=== PATIENT | female | born 1950 | race Caucasian/White ===

== ENCOUNTER 2017-04-10 11:22 | Inpatient (IN) | payer MEDICARE, BC ==
[2017-04-10] MEDS ORDERED: HYDROmorphone 0.5 MG/0.5 ML Syringe IVPUSH PRN (12:55)
[2017-04-10] MEDS ORDERED: Bisacodyl 5 MG Tab PO PRN (12:55)
[2017-04-10] MEDS ORDERED: Albuterol/Ipratropium 3.0-0.5 MG/3 ML Neb Soln NEB PRN (12:55)
[2017-04-10] MEDS ORDERED: Polyethylene Glycol 3350 Powder 17 GM Packet PO PRN (12:55)
[2017-04-10] MEDS ORDERED: Promethazine 12.5 MG in Sodium Chloride 0.9% 50 ML IV PRN (12:55)
[2017-04-10] MEDS ORDERED: Ondansetron 4 MG/2 ML SDV IV PRN (12:55)
[2017-04-10] MEDS ORDERED: Acetaminophen/oxyCODONE 325-5 MG Tab PO PRN (12:55)
[2017-04-10] MEDS ORDERED: Docusate Sodium 100 MG Cap PO PRN (12:55)
[2017-04-10] MEDS ORDERED: Acetaminophen 325 MG Tab PO PRN (12:55)
[2017-04-10] MEDS ORDERED: LORazepam 2 MG/ML MDV IV PRN (12:55)
[2017-04-10] MEDS ORDERED: Temazepam 15 MG Cap PO PRN (12:55)
--- NOTE | 2017-04-10 12:55 | PCM.HP ---
H&P History of Present Illness - General Date of Service: 04/10/17 Admit Problem/Dx: Acute Diverticulitis Source of Information: Patient, Old Records, Provider History Limitations: Reports: No Limitations - History of Present Illness Initial Comments - Free Text/Narative: This is a 66 yo elderly white female with past medical hx/o HTN, HLD, BREE on CPAP, Chronic Constipation, GERD, Urinary Incontinence, Hypothyroidism, Insomnia , AR, OA, Depression and Morbid Obesity who comes via direct admit from her PCP' s office. She was recently diagnosed with colic diverticulitis on medical treatment but currently failing outpatient treatment. She denies any nausea or vomiting. She is able to pas gas. Her last bowel movement was loose yesterday. Her intake is marginal. She complaints of abdominal pain 7/10 localized to her left lower abdomen. Patient has no labs done today. She will be admitted for acute colonic diverticulosis. She is full code. - Related Data Allergies/Adverse Reactions: Allergies Allergy/AdvReac Type Severity Reaction Status Date / Time ibuprofen [From Advil] Allergy Unknown Cannot Verified 04/10/17 12:16 Remember Penicillins Allergy Unknown Cannot Verified 04/10/17 12:16 Remember Home Medications: Home Meds Multivitamins/Iron/Folic Acid [Cerovite Advanced Formula] 1 tab PO DAILY [History] RX: Hydrochlorothiazide 12.5 mg PO DAILY 09/06/14 [History] RX: Simvastatin [Zocor] 10 mg PO DAILY 09/06/14 [History] RX: Aspirin [Halfprin] 81 mg PO DAILY 04/10/17 [History] RX: Calcium Carbonate/Vitamin D3 [Calcium 600 + Vit D Softgel] 1 tab PO DAILY [History] RX: Sertraline [Zoloft] 50 mg PO DAILY 04/10/17 [History] RX: Tamsulosin [Flomax] 0.4 mg PO DAILY 04/10/17 [History] RX: diphenhydrAMINE [Benadryl] 50 mg PO BEDTIME 04/10/17 [History] Temazepam [Restoril] 15 mg PO BEDTIME 04/10/17 [History] Social & Family History - Tobacco Use Smoking Status *Q: Never Smoker - Recreational Drug Use Recreational Drug Use: No H&P Review of Systems - Review of Systems: Review Of Systems: See Below General: Reports: Decreased Appetite. Denies: Fever, Chills, Malaise, Weakness , Fatigue HEENT: Reports: No Symptoms Pulmonary: Denies: Shortness of Breath Cardiovascular: Denies: Chest Pain, Edema, Lightheadedness Gastrointestinal: Reports: Abdominal Pain, Decreased Appetite, Flatus. Denies: Anorexia, Constipation, Diarrhea, Difficulty Swallowing, Hematochezia, Melena, Nausea, Vomiting Genitourinary: Reports: No Symptoms Musculoskeletal: Reports: Joint Pain Skin: Denies: Cyanosis, Rash, Erythema Psychiatric: Denies: Depression, Cravings, Hallucinations Neurological: Reports: Gait Disturbance. Denies: Confusion, Difficulty Walking , Weakness Hematologic/Lymphatic: Reports: No Symptoms Immunologic: Reports: No Symptoms Exam - Exam Exam: See Below - Vital Signs Vital Signs: Last Vital Signs Temp 36.8 C 04/10/17 11:44 Pulse 79 04/10/17 11:44 Resp 14 04/10/17 11:44 BP 147/88 H 04/10/17 11:44 Pulse Ox 97 04/10/17 11:44 Weight: 133.991 kg - Exam General: Alert, Oriented, Cooperative, Mild Distress, Other (Morbidly Obese) HEENT: Conjunctiva Clear, EACs Clear, EOMI, Hearing Intact, Mucosa Moist & Santiago , Nares Patent, Posterior Pharynx Clear, Pupils Equal Neck: Supple, Trachea Midline, +2 Carotid Pulse wo Bruit, Full Range of Motion. No: JVD Lungs: Clear to Auscultation, Normal Respiratory Effort, Decreased Breath Sounds Cardiovascular: Regular Rate, Regular Rhythm Abdomen: Normal Bowel Sounds, Soft, Pelvis Stable, Tenderness (left lower abdomen). No: Organomegaly, Peritoneal Signs, Distention, Guarding, Rigidity, Rebound (Female) Exam: Deferred Rectal (Female) Exam: Deferred Back Exam: Normal Inspection, Decreased Range of Motion Extremities: Normal Inspection, Normal Pulses, Edema (trace), Other (scars on both knees). No: Clubbing, Cyanosis Peripheral Pulses: 2+: Posterior Tibial (L), Posterior Tibial (R), Dorsalis Pedis (L), Dorsalis Pedis (R) Skin: Warm, Dry, Intact Neuro Extensive - Mental Status: Oriented x3, Normal Cognition, Memory Intact Neuro Extensive - Motor, Sensory, Reflexes: CN II-XII Intact, Abnormal Gait Psychiatric: Alert, Normal Affect, Normal Mood *Q Meaningful Use (ADM) - VTE *Q VTE Criteria *Q: - Stroke *Q Stroke Criteria *Q: - AMI *Q AMI Criteria *Q: Problem List Initiated/Reviewed/Updated: Yes Assessment/Plan Comment:: Assessment/Plan: Acute: Colonic Diverticulitis w/o Perforation, Abscess or Bleeding - Failling outpatient treatment - Supportive care and PRN Meds for symptomatic control - IV Flagyl 500 mg TID and Levaquin 500 mg IV daily first dose now Chronic: HTN HLD BREE on CPAP Chronic Constipation GERD Urinary Incontinence Hypothyroidism Insomnia AR OA Depression Morbid Obesity Plan: Admit to Med Surg Resume Home Meds CPAP at [facility] Bowel rest then clear liquids starting supper IVF D51/2 NS at 125 cc/hr PT/OT consult SW/CM for d/c planning Code Status: 1
[2017-04-10] MEDS ORDERED: hydrALAZINE 20 MG/ML SDV IVPUSH PRN (13:13)
[2017-04-10] MEDS: Dextrose 5%-0.45% NaCl 1,000 ML IV SCH ×2 (13:49→20:56)
[2017-04-10] MEDS: metroNIDAZOLE/Normal Saline 500 MG in Premix Bag 1 BAG IV SCH ×2 (13:49→21:00)
[2017-04-10] MEDS ORDERED: Levofloxacin/Dextrose 5%-Water 500 MG in Premix Bag 1 BAG IV SCH (15:00)
[2017-04-10] MEDS: Temazepam 15 MG Cap PO SCH (20:54)
[2017-04-10] MEDS: diphenhydrAMINE 50 MG Cap PO SCH (20:54)
[2017-04-11] MEDS: metroNIDAZOLE/Normal Saline 500 MG in Premix Bag 1 BAG IV SCH ×3 (05:18→21:38)
[2017-04-11] MEDS: Dextrose 5%-0.45% NaCl 1,000 ML IV SCH (06:26)
[2017-04-11] MEDS ORDERED: Levofloxacin/Dextrose 5%-Water 250 MG in Premix Bag 1 BAG IV SCH ×2 (07:04→15:00)
[2017-04-11] MEDS ORDERED: Magnesium Oxide 400 MG Tab PO ONE (08:00)
[2017-04-11] MEDS: Enoxaparin 40 MG/0.4 ML Syringe SUBCUT SCH (08:11)
[2017-04-11] MEDS: Simvastatin 10 MG Tab PO SCH (08:12)
[2017-04-11] MEDS: Calcium Carbonate/Vitamin D3 1500 MG-200 Units Tab PO SCH (08:12)
[2017-04-11] MEDS: Multivitamins,Therapeutic Tab PO SCH (08:12)
[2017-04-11] MEDS: Aspirin 81 MG Tab.EC PO SCH (08:12)
[2017-04-11] MEDS: Hydrochlorothiazide 12.5 MG Cap PO SCH (08:12)
[2017-04-11] MEDS ORDERED: Sertraline 50 MG Tab PO SCH (09:00)
[2017-04-11] MEDS ORDERED: Tamsulosin 0.4 MG Cap.ER PO SCH (09:00)
--- NOTE | 2017-04-11 09:10 | PCM.PN ---
- General Info Date of Service: 04/11/17 Admission Dx/Problem (Free Text): Acute Diverticulitis Subjective Update: Follow Up Functional Status: Reports: pain controlled, tolerating diet, ambulating, urinating, new symptoms Pain Score: 4 - Review of Systems General: Denies: Fever, Weakness, Fatigue, Malaise HEENT: Reports: no symptoms Pulmonary: Denies: shortness of breath Cardiovascular: Denies: Chest Pain Gastrointestinal: Reports: Abdominal pain. Denies: Decreased appetite, Difficulty swallowing, Nausea, Vomiting Genitourinary: Reports: no symptoms Musculoskeletal: Reports: no symptoms Skin: Reports: no symptoms Neurological: Denies: Confusion, Difficulty Walking, Weakness, Gait Disturbance Psychiatric: Denies: confusion, depression, anxiety, agitation, cravings, hallucinations Systems Review Comment:: No overnight or acute issues. She slept well. Her pain is controlled. Tolerated clear liquid diet last night. She has no new complaints. - Patient Data Vitals - most recent: Last Vital Signs Temp 36.4 C 04/11/17 01:43 Pulse 72 04/11/17 01:43 Resp 17 04/11/17 01:43 BP 111/60 04/11/17 01:43 Pulse Ox 94 L 04/11/17 01:43 Weight - most recent: 134.037 kg I&O - last 24 hours: Intake & Output 04/10/17 04/11/17 04/11/17 22:59 06:59 14:59 Intake Total 880 2302 Output Total 300 600 Balance 580 1702 Lab Results last 24 hrs: Laboratory Results - last 24 hr 04/11/17 04/11/17 Range/Units 04:40 04:40 WBC 7.89 (3.98-10.04) K/mm3 RBC 4.45 (3.98-5.22) M/mm3 Hgb 13.0 (11.2-15.7) gm/L Hct 39.3 (34.1-44.9) % MCV 88.3 (79.4-94.8) fl MCH 29.2 (25.6-32.2) pg MCHC 33.1 (32.2-35.5) g/dl RDW Std Deviation 43.1 (36.4-46.3) fL Plt Count 246 (182-369) K/mm3 MPV 10.5 (9.4-12.3) fl Neut % (Auto) 62.2 (34.0-71.1) % Lymph % (Auto) 24.1 (19.3-51.7) % Cottle % (Auto) 8.1 (4.7-12.5) % Eos % (Auto) 4.7 (0.7-5.8) Baso % (Auto) 0.6 (0.1-1.2) % Neut # (Auto) 4.91 (1.56-6.13) K/mm3 Lymph # (Auto) 1.90 (1.18-3.74) K/mm3 Cottle # (Auto) 0.64 H (0.24-0.36) K/mm3 Eos # (Auto) 0.37 H (0.04-0.36) K/mm3 Baso # (Auto) 0.05 (0.01-0.08) K/mm3 Manual Slide Review Normal smear Sodium 138 (136-145) mEq/L Potassium 3.5 (3.5-5.1) mEq/L Chloride 104 (98-107) mEq/L Carbon Dioxide 26 (21-32) mEq/L Anion Gap 11.5 (5-15) BUN 6 L (7-18) mg/dL Creatinine 1.0 (0.55-1.02) mg/dL Est Cr Clr Drug Dosing 44.54 mL/min Estimated GFR (MDRD) 55 (>60) mL/min BUN/Creatinine Ratio 6.0 L (14-18) Glucose 135 H (80-115) mg/dL Calcium 7.9 L (8.5-10.1) mg/dL Magnesium 1.9 (1.8-2.4) mg/dl C-Reactive Protein 4.7 H* (<1.0) mg/dL Med Orders - Current: Current Medications Acetaminophen (Tylenol) 650 mg PO Q4H PRN PRN Reason: Pain (Mild 1-3)/fever Albuterol/Ipratropium (Duoneb 3.0-0.5 Mg/3 Ml) 3 ml NEB Q4H PRN PRN Reason: Shortness Of Breath/wheezing Aspirin (Halfprin) 81 mg PO DAILY [facility] Last Admin: 04/11/17 08:12 Dose: 81 mg Bisacodyl (Dulcolax) 5 mg PO DAILY PRN PRN Reason: Constipation Calcium Carbonate (Calcium Carbonate/Vitamin D 1500 Mg-200 Unit) 1 tab PO DAILY [facility] Last Admin: 04/11/17 08:12 Dose: 1 tab Diphenhydramine HCl (Benadryl) 50 mg PO BEDTIME [facility] Last Admin: 04/10/17 20:54 Dose: 50 mg Docusate Sodium (Colace) 100 mg PO BID PRN PRN Reason: Constipation Enoxaparin Sodium (Lovenox) 40 mg SUBCUT DAILY [facility] Last Admin: 04/11/17 08:11 Dose: 40 mg Hydralazine HCl (Apresoline) 20 mg IVPUSH Q4H PRN PRN Reason: Hypertension Hydrochlorothiazide (Hydrochlorothiazide) 12.5 mg PO DAILY [facility] Last Admin: 04/11/17 08:12 Dose: 12.5 mg Hydromorphone HCl (Dilaudid) 0.5 mg IVPUSH Q2H PRN PRN Reason: Pain (severe 7-10) Dextrose/Sodium Chloride (Dextrose 5%-1/2 Ns) 1,000 mls @ 125 mls/hr IV ASDIRECTED [facility] Last Admin: 04/11/17 06:26 Dose: 125 mls/hr Promethazine HCl 12.5 mg/ (Sodium Chloride) 50.5 mls @ 100 mls/hr IV Q6H PRN PRN Reason: Nausea/Vomiting Metronidazole 500 mg/ Premix 100 mls @ 100 mls/hr IV Q8H [facility] Last Admin: 04/11/17 05:18 Dose: 100 mls/hr Levofloxacin/Dextrose 250 mg/ (Premix) 50 mls @ 50 mls/hr IV Q24H [facility] Lorazepam (Ativan) 1 mg IV Q6H PRN PRN Reason: Anxiety Magnesium Sulfate (Pharmacy To Dose - Magnesium Replacement) 0 dose .XX ASDIRECTED PRN PRN Reason: RX TO MONITOR MAG LEVELS Multivitamins (Thera) 1 each PO DAILY [facility] Last Admin: 04/11/17 08:12 Dose: 1 each Ondansetron HCl (Zofran) 4 mg IV Q6H PRN PRN Reason: Nausea/Vomiting Oxycodone/Acetaminophen (Percocet 325-5 Mg) 2 tab PO Q4H PRN PRN Reason: Pain (moderate 4-6) Polyethylene Glycol (Miralax) 17 gm PO DAILY PRN PRN Reason: Constipation Potassium Chloride (Pharmacy To Dose - Potassium Replacement) 0 dose .XX ASDIRECTED PRN PRN Reason: RX TO MONITOR K LEVELS Senna/Docusate Sodium (Senna Plus) 1 tab PO BID PRN PRN Reason: Constipation Sertraline HCl (Zoloft) 50 mg PO DAILY [facility] Last Admin: 04/11/17 08:11 Dose: Not Given Simvastatin (Zocor) 10 mg PO DAILY [facility] Last Admin: 04/11/17 08:12 Dose: 10 mg Tamsulosin HCl (Flomax) 0.4 mg PO DAILY [facility] Last Admin: 04/11/17 08:12 Dose: Not Given Temazepam (Restoril) 15 mg PO BEDTIME [facility] Last Admin: 04/10/17 20:54 Dose: 15 mg Discontinued Medications Levofloxacin/Dextrose 500 mg/ (Premix) 100 mls @ 100 mls/hr IV Q24H [facility] Last Admin: 04/10/17 15:12 Dose: 100 mls/hr Levofloxacin/Dextrose 250 mg/ (Premix) 50 mls @ 50 mls/hr IV Q24H [facility] Magnesium Oxide (Magnesium Oxide) 400 mg PO ONETIME ONE Stop: 04/11/17 08:01 Last Admin: 04/11/17 08:12 Dose: 400 mg Temazepam (Restoril) 30 mg PO BEDTIME PRN PRN Reason: Sleep - Exam General: alert, oriented, cooperative, no acute distress HEENT: Pupils equal, Pupils reactive, EOMI, Mucous membr. moist/pink Neck: supple, trachea midline, no JVD, no thyromegaly Lungs: Clear to auscultation, Normal respiratory effort Cardiovascular: Regular Rate, Regular Rhythm Abdomen: bowel sounds present, soft, no distension, rigidity, tenderness (mild at left lower abdomen) (Female) Exam: Deferred Back Exam: Normal Inspection, Decreased Range of Motion Extremities: no edema, normal pulses, no tenderness/swelling, no clubbing, no cyanosis, no calf tenderness Peripheral Pulses: 2+: Posterior Tibial (L), Posterior Tibial (R), Dorsalis Pedis (L), Dorsalis Pedis (R) Skin: warm, dry, intact Neurological: no new focal deficit Psy/Mental Status: alert, normal affect, normal mood - Problem List Review Problem List Initiated/Reviewed/Updated: Yes - My Orders Last 24 Hours: My Active Orders 04/10/17 12:55 Height and Weight [RC] 04 Oxygen Therapy [RC] PRN Up With Assistance [RC] ASDIRECTED Up ad [place] [RC] ASDIRECTED VTE/DVT Education [RC] Vital Signs [RC] ,15,,03 Acetaminophen [Tylenol] 650 mg PO Q4H PRN Acetaminophen/oxyCODONE [Percocet 325-5 MG] 2 tab PO Q4H PRN Albuterol/Ipratropium [DuoNeb 3.0-0.5 MG/3 ML] 3 ml NEB Q4H PRN Bisacodyl [Dulcolax] 5 mg PO DAILY PRN Docusate Sodium [Colace] 100 mg PO BID PRN Docusate Sodium/Sennosides [Senna Plus] 1 tab PO BID PRN HYDROmorphone [Dilaudid] 0.5 mg IVPUSH Q2H PRN LORazepam [Ativan] 1 mg IV Q6H PRN Ondansetron [Zofran] 4 mg IV Q6H PRN Polyethylene Glycol 3350 [MiraLAX] 17 gm PO DAILY PRN Promethazine [Phenergan] 12.5 mg Sodium Chloride 0.9% [Normal Saline] 50 ml IV Q6H Resuscitation Status Routine 04/10/17 12:56 Intake and Output [RC] 04,16 04/10/17 12:57 RT Aerosol Therapy [RC] ASDIRECTED 04/10/17 12:58 Consult to Case Management [CONS] Routine Consult to Motion Study Technician [CONS] Routine OT Evaluation and Treatment [CONS] Routine PT Evaluation and Treatment [CONS] Routine 04/10/17 13:00 Dextrose 5%-0.45% NaCl [Dextrose 5%-1/2 NS] 1,000 ml IV ASDIRECTED 04/10/17 13:13 hydrALAZINE [Apresoline] 20 mg IVPUSH Q4H PRN 04/10/17 13:15 Magnesium Rep Pharmacy to Dose [Pharmacy to Dose - Magnesium Replacement] 0 dose .XX ASDIRECTED PRN Potassium Rep Pharmacy to Dose [Pharmacy to Dose - Potassium Replacement] 0 dose .XX ASDIRECTED PRN 04/10/17 14:00 metroNIDAZOLE/Normal Saline [Flagyl 500 MG in NS 100 ML] 500 mg Premix Bag 1 bag IV Q8H 04/10/17 21:00 Temazepam [Restoril] 15 mg PO BEDTIME diphenhydrAMINE [Benadryl] 50 mg PO BEDTIME 04/10/17 Dinner Clear Liquid Diet [DIET] 04/11/17 02:53 Consult to Mud Car Worker [CONS] Routine 04/11/17 09:00 Aspirin [Halfprin] 81 mg PO DAILY Calcium Carbonate/Vitamin D3 [Calcium Carbonate/Vitamin D 1500 MG-200 Unit] 1 tab PO DAILY Enoxaparin [Lovenox] 40 mg SUBCUT DAILY Hydrochlorothiazide 12.5 mg PO DAILY Multivitamins,Therapeutic [Thera] 1 each PO DAILY Sertraline [Zoloft] 50 mg PO DAILY Simvastatin [Zocor] 10 mg PO DAILY Tamsulosin [Flomax] 0.4 mg PO DAILY 04/11/17 15:00 Levofloxacin/Dextrose 5%-Water [Levaquin in D5W 250 MG/50 ML] 250 mg Premix Bag 1 bag IV Q24H 04/12/17 05:11 BASIC METABOLIC PANEL,BMP [CHEM] AM C-REACTIVE PROTEIN [CHEM] AM CBC WITH AUTO DIFF [HEME] AM MAGNESIUM [CHEM] AM 04/13/17 05:11 BASIC METABOLIC PANEL,BMP [CHEM] AM C-REACTIVE PROTEIN [CHEM] AM CBC WITH AUTO DIFF [HEME] AM MAGNESIUM [CHEM] AM 04/14/17 05:11 BASIC METABOLIC PANEL,BMP [CHEM] AM C-REACTIVE PROTEIN [CHEM] AM CBC WITH AUTO DIFF [HEME] AM MAGNESIUM [CHEM] AM 04/15/17 05:11 BASIC METABOLIC PANEL,BMP [CHEM] AM MAGNESIUM [CHEM] AM - Plan Plan:: Assessment/Plan: Acute: Colonic Diverticulitis w/o Perforation, Abscess or Bleeding - Failling outpatient treatment - Supportive care and PRN Meds for symptomatic control - Continue IV Flagyl 500 mg TID and Levaquin 500 mg IV daily - Improving clinically Obesity with BMI of 52 - Dietary consult for weight management Chronic: HTN HLD BREE on CPAP Chronic Constipation GERD Urinary Incontinence Hypothyroidism Insomnia AR OA Depression Morbid Obesity Plan: She is clinically stable Continue current treatment CPAP at QHS Advance diet as tolerated D/c IVF Continue PT/OT SW/CM for d/c planning Code Status: 1 Possible d/c in am if able to tolerate regular meal
[2017-04-11] MEDS: Temazepam 15 MG Cap PO SCH (21:38)
[2017-04-11] MEDS: diphenhydrAMINE 50 MG Cap PO SCH (21:38)
[2017-04-12] MEDS: metroNIDAZOLE/Normal Saline 500 MG in Premix Bag 1 BAG IV SCH (06:56)
--- NOTE | 2017-04-12 07:23 | PCM.DCSUM1 ---
Discharge Summary - Hospital Course Free Text/Narrative:: This is a 66 yo elderly white female with past medical hx/o HTN, HLD, BREE on CPAP, Chronic Constipation, GERD, Urinary Incontinence, Hypothyroidism, Insomnia , AR, OA, Depression and Morbid Obesity who comes via direct admit from her PCP' s office. She was recently diagnosed with colic diverticulitis on medical treatment but currently failing outpatient treatment. She denies any nausea or vomiting. She is able to pas gas. Her last bowel movement was loose yesterday. Her intake is marginal. She complaints of abdominal pain 7/10 localized to her left lower abdomen. Patient has no labs done today. She will be admitted for acute colonic diverticulosis. She is full code. She is admitted to hospitalist service as above for diverticulitis. She was treated with IV flagyl and levaquin x 2 days with good response. Pain improved significantly. She was tolerating regular diet upon discharge without nausea or worsening of abd pain after eating. She was moving her bowels without problems, no blood/hematochezia/melena noted. VSS, afebrile. Labs stable. She will be discharged home on oral antibiotics, probiotic, low fiber diet as discussed in consult with Shear Operator during her stay. She should follow up with PCP within 1 week of discharge. - Discharge Data Discharge Date: 04/12/17 (admit date 04/10/17) Discharge Disposition: Home, Self-Care 01 Condition: Good - Discharge Diagnosis/Problem(s) (1) Diverticulitis SNOMED Code(s): 812372092 ICD Code: K57.92 - DVTRCLI OF INTEST, PART UNSP, W/O PERF OR ABSCESS W/O BLEED Status: Acute Priority: High Qualifiers: Diverticulitis site: large intestine Diverticulitis bleeding: without bleeding Diverticulitis complication: with perforation Qualified Code(s): K57.20 - Diverticulitis of large intestine with perforation and abscess without bleeding - Patient Summary/Data Operative Procedure(s) Performed: None Complications: None Consults: Consultations 04/10/17 12:58 Consult to Case Management [CONS] Routine Consult to Case Preparer And Liner [CONS] Routine OT Evaluation and Treatment [CONS] Routine PT Evaluation and Treatment [CONS] Routine 04/11/17 02:53 Consult to Shear Operator [CONS] Routine Labs Pending at D/C: None Recommended Follow-up Testing/Procedures: Follow up with PCP, Dr. Brady within one week of discharge Planned Operative Procedure(s) after DC: None Hospital Course: As above - Patient Instructions Diet: Usual Diet as Tolerated (Diverticulitis diet), Drink 8-10+ Glasses/Day Activity: As Tolerated Driving: May Drive Today Showering/Bathing: May Shower Notify Provider of: Fever, Increased Pain, Nausea and/or Vomiting - Discharge Plan Prescriptions/Med Rec: Bifidobacter. Bifidum/B.Longum [Florajen Bifidoblend] 460 mg PO DAILY #30 capsule Ciprofloxacin HCl [Cipro] 500 mg PO BID #14 tablet metroNIDAZOLE [Flagyl] 500 mg PO TID #21 tablet Home Medications: Home Meds Hydrochlorothiazide 12.5 mg PO DAILY 09/06/14 [History] Multivitamins/Iron/Folic Acid [Cerovite Advanced Formula] 1 tab PO DAILY [History] Simvastatin [Zocor] 10 mg PO DAILY 09/06/14 [History] Aspirin [Halfprin] 81 mg PO DAILY 04/10/17 [History] Calcium Carbonate/Vitamin D3 [Calcium 600 + Vit D Softgel] 1 tab PO DAILY [History] Sertraline [Zoloft] 50 mg PO DAILY 04/10/17 [History] Tamsulosin [Flomax] 0.4 mg PO DAILY 04/10/17 [History] Temazepam [Restoril] 15 mg PO BEDTIME 04/10/17 [History] diphenhydrAMINE [Benadryl] 50 mg PO BEDTIME 04/10/17 [History] Bifidobacter. Bifidum/B.Longum [Florajen Bifidoblend] 460 mg PO DAILY #30 capsule 04/12/17 [Rx] Ciprofloxacin HCl [Cipro] 500 mg PO BID #14 tablet 04/12/17 [Rx] metroNIDAZOLE [Flagyl] 500 mg PO TID #21 tablet 04/12/17 [Rx] Patient Handouts: Diverticulitis, [id number], Low-Fiber Diet Referrals: Rl Brady MD [Primary Care Provider] - 04/18/17 1:00 pm - Discharge Summary/Plan Comment DC Time >30 min.: Yes (40 min) - General Info Date of Service: 04/12/17 Admission Dx/Problem (Free Text: Acute Diverticulitis Functional Status: Reports: pain controlled, tolerating diet, ambulating, urinating. Denies: new symptoms - Review of Systems General: Reports: No Symptoms HEENT: Reports: no symptoms Pulmonary: Reports: no symptoms Cardiovascular: Reports: No Symptoms Gastrointestinal: Reports: Abdominal pain (minimal). Denies: Constipation, Diarrhea, Nausea, Vomiting Genitourinary: Reports: no symptoms Musculoskeletal: Reports: no symptoms Skin: Reports: no symptoms Neurological: Reports: No Symptoms Psychiatric: Reports: no symptoms - Patient Data Vitals - Most Recent: Last Vital Signs Temp 98.2 F 04/11/17 20:55 Pulse 78 04/11/17 20:55 Resp 15 04/11/17 20:55 BP 90/67 04/11/17 20:55 Pulse Ox 95 04/11/17 20:55 Weight - Most Recent: 295 lb 4.8 oz I&O - Last 24 hours: Intake & Output 04/11/17 04/12/17 04/12/17 22:59 06:59 14:59 Intake Total 2487 900 Output Total 1950 1400 Balance 537 -500 Lab Results - Last 24 hrs: Laboratory Results - last 24 hr 04/11/17 04/12/17 Range/Units 04:40 06:35 WBC 7.89 6.94 (3.98-10.04) K/mm3 RBC 4.45 4.53 (3.98-5.22) M/mm3 Hgb 13.0 13.2 (11.2-15.7) gm/L Hct 39.3 39.7 (34.1-44.9) % MCV 88.3 87.6 (79.4-94.8) fl MCH 29.2 29.1 (25.6-32.2) pg MCHC 33.1 33.2 (32.2-35.5) g/dl RDW Std Deviation 43.1 43.3 (36.4-46.3) fL Plt Count 246 233 (182-369) K/mm3 MPV 10.5 9.9 (9.4-12.3) fl Neut % (Auto) 62.2 58.0 (34.0-71.1) % Lymph % (Auto) 24.1 26.8 (19.3-51.7) % Woodruff % (Auto) 8.1 9.7 (4.7-12.5) % Eos % (Auto) 4.7 4.6 (0.7-5.8) Baso % (Auto) 0.6 0.6 (0.1-1.2) % Neut # (Auto) 4.91 4.03 (1.56-6.13) K/mm3 Lymph # (Auto) 1.90 1.86 (1.18-3.74) K/mm3 Woodruff # (Auto) 0.64 H 0.67 H (0.24-0.36) K/mm3 Eos # (Auto) 0.37 H 0.32 (0.04-0.36) K/mm3 Baso # (Auto) 0.05 0.04 (0.01-0.08) K/mm3 Manual Slide Review Normal smear Med Orders - Current: Current Medications Acetaminophen (Tylenol) 650 mg PO Q4H PRN PRN Reason: Pain (Mild 1-3)/fever Albuterol/Ipratropium (Duoneb 3.0-0.5 Mg/3 Ml) 3 ml NEB Q4H PRN PRN Reason: Shortness Of Breath/wheezing Aspirin (Halfprin) 81 mg PO DAILY [facility] Last Admin: 04/11/17 08:12 Dose: 81 mg Bisacodyl (Dulcolax) 5 mg PO DAILY PRN PRN Reason: Constipation Calcium Carbonate (Calcium Carbonate/Vitamin D 1500 Mg-200 Unit) 1 tab PO DAILY [facility] Last Admin: 04/11/17 08:12 Dose: 1 tab Diphenhydramine HCl (Benadryl) 50 mg PO BEDTIME [facility] Last Admin: 04/11/17 21:38 Dose: 50 mg Docusate Sodium (Colace) 100 mg PO BID PRN PRN Reason: Constipation Enoxaparin Sodium (Lovenox) 40 mg SUBCUT DAILY [facility] Last Admin: 04/11/17 08:11 Dose: 40 mg Hydralazine HCl (Apresoline) 20 mg IVPUSH Q4H PRN PRN Reason: Hypertension Hydrochlorothiazide (Hydrochlorothiazide) 12.5 mg PO DAILY [facility] Last Admin: 04/11/17 08:12 Dose: 12.5 mg Hydromorphone HCl (Dilaudid) 0.5 mg IVPUSH Q2H PRN PRN Reason: Pain (severe 7-10) Promethazine HCl 12.5 mg/ (Sodium Chloride) 50.5 mls @ 100 mls/hr IV Q6H PRN PRN Reason: Nausea/Vomiting Metronidazole 500 mg/ Premix 100 mls @ 100 mls/hr IV Q8H [facility] Last Admin: 04/12/17 06:56 Dose: 100 mls/hr Levofloxacin/Dextrose 250 mg/ (Premix) 50 mls @ 50 mls/hr IV Q24H [facility] Last Admin: 04/11/17 15:25 Dose: 50 mls/hr Lorazepam (Ativan) 1 mg IV Q6H PRN PRN Reason: Anxiety Magnesium Sulfate (Pharmacy To Dose - Magnesium Replacement) 0 dose .XX ASDIRECTED PRN PRN Reason: RX TO MONITOR MAG LEVELS Multivitamins (Thera) 1 each PO DAILY [facility] Last Admin: 04/11/17 08:12 Dose: 1 each Ondansetron HCl (Zofran) 4 mg IV Q6H PRN PRN Reason: Nausea/Vomiting Oxycodone/Acetaminophen (Percocet 325-5 Mg) 2 tab PO Q4H PRN PRN Reason: Pain (moderate 4-6) Polyethylene Glycol (Miralax) 17 gm PO DAILY PRN PRN Reason: Constipation Potassium Chloride (Pharmacy To Dose - Potassium Replacement) 0 dose .XX ASDIRECTED PRN PRN Reason: RX TO MONITOR K LEVELS Senna/Docusate Sodium (Senna Plus) 1 tab PO BID PRN PRN Reason: Constipation Simvastatin (Zocor) 10 mg PO DAILY [facility] Last Admin: 04/11/17 08:12 Dose: 10 mg Temazepam (Restoril) 15 mg PO BEDTIME [facility] Last Admin: 04/11/17 21:38 Dose: 15 mg Discontinued Medications Dextrose/Sodium Chloride (Dextrose 5%-1/2 Ns) 1,000 mls @ 125 mls/hr IV ASDIRECTED [facility] Last Admin: 04/11/17 06:26 Dose: 125 mls/hr Levofloxacin/Dextrose 500 mg/ (Premix) 100 mls @ 100 mls/hr IV Q24H [facility] Last Admin: 04/10/17 15:12 Dose: 100 mls/hr Levofloxacin/Dextrose 250 mg/ (Premix) 50 mls @ 50 mls/hr IV Q24H [facility] Last Admin: 04/11/17 10:29 Dose: Not Given Magnesium Oxide (Magnesium Oxide) 400 mg PO ONETIME ONE Stop: 04/11/17 08:01 Last Admin: 04/11/17 08:12 Dose: 400 mg Sertraline HCl (Zoloft) 50 mg PO DAILY [facility] Last Admin: 04/11/17 08:11 Dose: Not Given Tamsulosin HCl (Flomax) 0.4 mg PO DAILY [facility] Last Admin: 04/11/17 08:12 Dose: Not Given Temazepam (Restoril) 30 mg PO BEDTIME PRN PRN Reason: Sleep - Exam Quality Assessment: Reports: DVT prophylaxis General: Reports: alert, oriented, cooperative, no acute distress HEENT: Reports: Pupils equal, Pupils reactive, EOMI, Mucous membr. moist/pink Neck: Reports: supple Lungs: Reports: Clear to auscultation, Normal respiratory effort Cardiovascular: Reports: Regular Rate, Regular Rhythm Abdomen: Reports: bowel sounds present, soft, no distension, tenderness (mild lower quadrant tenderness with palpation). Denies: rigidity, rebound, guarding (Female) Exam: Deferred Rectal (Female) Exam: Deferred Back Exam: Reports: Normal Inspection Extremities: Reports: no edema, no calf tenderness Skin: Reports: warm, dry, intact Neurological: Reports: no new focal deficit Psy/Mental Status: Reports: alert, normal affect, normal mood *Q Meaningful Use (DIS) - VTE *Q VTE Criteria *Q: - Stroke *Q Stroke Criteria *Q: - AMI *Q AMI Criteria *Q:
[2017-04-12 08:47] VITALS: BP 99/76
[2017-04-12] MEDS: Multivitamins,Therapeutic Tab PO SCH (09:31)
[2017-04-12] MEDS: Simvastatin 10 MG Tab PO SCH (09:31)
[2017-04-12] MEDS: Calcium Carbonate/Vitamin D3 1500 MG-200 Units Tab PO SCH (09:31)
[2017-04-12] MEDS: Aspirin 81 MG Tab.EC PO SCH (09:31)
[2017-04-12] MEDS: Hydrochlorothiazide 12.5 MG Cap PO SCH (09:31)
[2017-04-12] MEDS: Enoxaparin 40 MG/0.4 ML Syringe SUBCUT SCH (09:32)
== END 2017-04-12 12:40 | disposition home or self-care (01) | DRG 392 ==
LOC: JD.MS 11:22
PROVIDERS: ADMIT Internal Medicine; ATTEND Internal Medicine
DX: K57.20 Diverticulitis of large intestine with perforation and abscess without bleeding (principal); Z68.43 Body mass index [BMI] 50.0-59.9, adult; I10 Essential (primary) hypertension; E78.5 Hyperlipidemia, unspecified; G47.33 Obstructive sleep apnea (adult) (pediatric); K59.09 Other constipation; K21.9 Gastro-esophageal reflux disease without esophagitis; E03.9 Hypothyroidism, unspecified; G47.00 Insomnia, unspecified; I35.1 Nonrheumatic aortic (valve) insufficiency; M19.90 Unspecified osteoarthritis, unspecified site; F32.9 Major depressive disorder, single episode, unspecified; E66.01 Morbid (severe) obesity due to excess calories; Z79.82 Long term (current) use of aspirin; Z79.899 Other long term (current) drug therapy; Z88.0 Allergy status to penicillin; Z88.6 Allergy status to analgesic agent
CPT/HCPCS: 36415; 80048; 83735; 85025; 86140; 97161-GP; 97165-GO; 97530-GO; A9270-GY; J1650; J1956; J7042

== ENCOUNTER 2022-04-19 10:01 | Emergency (ER) | payer MEDICARE, BC ==
[2022-04-19 10:21] VITALS: BP 163/77; PULSE 71
[2022-04-19] MEDS ORDERED: Aspirin 81 MG Tab.Chew PO ONE (10:55)
[2022-04-19] MEDS ORDERED: Sodium Chloride 0.9% 1,000 ML IV SCH (11:00)
[2022-04-19] MEDS ORDERED: Nitroglycerin/D5W 25 MG/250 ML BOTTLE IV SCH (11:00)
[2022-04-19 11:48] LABS: ESTIMATED GFR 54 mL/min (>60)
[2022-04-19] MEDS ORDERED: Ondansetron 4 MG/2 ML SDV IVPUSH ONE (12:25)
[2022-04-19] MEDS ORDERED: HYDROmorphone 0.5 MG/0.5 ML Syringe IVPUSH ONE (12:25)
== END 2022-04-19 13:20 | disposition home or self-care (01) ==
LOC: JD.ED 10:01
DX: R07.9 Chest pain, unspecified (principal); K22.4 Dyskinesia of esophagus; K21.9 Gastro-esophageal reflux disease without esophagitis; Z88.0 Allergy status to penicillin; Z88.8 Allergy status to other drugs, medicaments and biological substances; Z79.899 Other long term (current) drug therapy
CPT/HCPCS: 36415; 71045; 80053; 82553; 83735; 83880; 84484; 85025; 85379; 85610; 85730; 86140; 93005; 96365; 96366; 96375; 99285; A9270; J1170; J2405; J3490; J7030

== ENCOUNTER 2025-05-21 09:39 | Emergency (ER) | payer MEDICARE ==
[2025-05-21 09:49] VITALS: BP 163/88; PULSE 78
[2025-05-21] MEDS ORDERED: Sodium Chloride 0.9% 10 ML Syringe FLUSH PRN (09:59)
[2025-05-21 10:52] LABS: BASOPHILS ABSOLUTE AUTO 0.1 K/mm3 (0.0-0.2); BASOPHILS PERCENT AUTO 0.6 % (0.0-1.0); EOSINOPHILS ABSOLUTE AUTO 0.3 K/mm3 (0.0-0.4); EOSINOPHILS PERCENT AUTO 2.8 % (0.0-6.0); IMMATURE GRAN ABSOLUTE AUTO 0.03 K/mm3 (0.00-0.05); IMMATURE GRAN PERCENT AUTO 0.3 % (0.0-0.4); LYMPHOCYTES ABSOLUTE AUTO 2.3 K/mm3 (1.0-4.8); LYMPHOCYTES PERCENT AUTO 22.1 % (24.0-44.0); MEAN PLATELET VOLUME 10.6 fl (9.4-12.3); MONOCYTES ABSOLUTE AUTO 0.9 K/mm3 (0.0-0.8); MONOCYTES PERCENT AUTO 8.2 % (0.0-8.0); NEUTROPHILS ABSOLUTE AUTO 7.0 K/mm3 (1.8-7.7); NEUTROPHILS PERCENT AUTO 66.0 % (41.0-71.0); NRBC ABSOLUTE 0.00 (0.00-0.02); NRBC PERCENT 0.0 % (0.0-0.2); PLATELET COUNT,PLT 215 K/mm3 (150-400); RED BLOOD CELL COUNT 4.83 M/mm3 (4.10-5.30); WHITE BLOOD CELL COUNT,WBC 10.54 K/mm3 (3.9-11.3)
[2025-05-21 11:10] LABS: LACTIC ACID 1.1 mmol/L (0.4-2.0)
[2025-05-21 11:17] LABS: A/G RATIO 0.9 (1-2); ALANINE AMINOTRANSFERASE,ALT 18.0 U/L (14-59); ASPARTATE AMNIOTRANSFERASE,AST 18.0 U/L (15-37); BILIRUBIN TOTAL 0.8 mg/dL (0.2-1.0); BLOOD UREA NITROGEN,BUN 13.0 mg/dL (7-18); CARBON DIOXIDE,CO2 31.0 mEq/L (21-32); CHLORIDE,CL 104.0 mEq/L (98-107); CREATININE 0.9 mg/dL (0.55-1.02); EST CRCL DRUG DOSING (CG) 42.06 mL/min; ESTIMATED GFR 66.0 mL/min (>60); GLUCOSE RANDOM 120.0 mg/dL (70-99); POTASSIUM,K 3.7 mEq/L (3.5-5.1); PROTEIN TOTAL,TP 6.9 g/dl (6.4-8.2); SODIUM,NA 140.0 mEq/L (136-145)
[2025-05-21 11:38] LABS: APPEARANCE,URINE CLEAR (Clear); GLUCOSE,URINE NEGATIVE (Negative); OCCULT BLOOD,URINE NEGATIVE (Negative)
[2025-05-21] MEDS: Sodium Chloride 0.9% 10 ML Syringe FLUSH ONE (11:59)
[2025-05-21] MEDS: Iopamidol 612 MG/ML 100 ML Bottle IVPUSH ONE (11:59)
[2025-05-21] MEDS: metroNIDAZOLE/Normal Saline 500 MG in Premix Bag 1 BAG IV ONE (15:07)
[2025-05-21] MEDS: Levofloxacin/Dextrose 5%-Water 750 MG in Premix Bag 1 BAG IV ONE (15:09)
== END 2025-05-21 16:55 | disposition home or self-care (01) ==
LOC: JD.ED 09:39
DX: K57.32 Diverticulitis of large intestine without perforation or abscess without bleeding (principal); I10 Essential (primary) hypertension; K21.9 Gastro-esophageal reflux disease without esophagitis; Z90.710 Acquired absence of both cervix and uterus; Z79.899 Other long term (current) drug therapy; Z88.6 Allergy status to analgesic agent; Z88.0 Allergy status to penicillin
CPT/HCPCS: 36415; 74177; 80053; 81003; 83605; 83735; 85025; 96365; 96368; 99284; J1836; J1956; J7030; Q9967